=== PATIENT | female | born 1950 | race African-American/Black ===

== ENCOUNTER 2017-08-09 04:00 | Emergency (ER) | payer OTHER, BC ==
[~2017-08-09] VITALS: Ht 165.1 cm; Wt 114.5 kg
[~2017-08-09 04:00] MED LIST: AMLODIPINE BESY10 MG; ANALGESIC325 MG PO; ASPIRIN325 MG PO; ATENOLOL50 M1 PO; ATENOLOL50 MG; ATENOLOL50 MG PO; CLONAZEPAM0.5 MG PO; CRESTOR5 MG; CRESTOR5 MG PO; ERGOCALCIF50000 UNIT; FIORICET,ESG1 TABLET PO; FLUTICASONE PRO16 GM; Flagyl PO; HYDROCHLOROTH12.5 M3 PO; HYDROXYCHLOROQ200 MG; HYDROXYCHLOROQ200 MG PO; HYOSCYAMINE0.375 MG; LO-DOSE ASPIRIN81 M1 PO; LYRICA100 MG; LYRICA100 MG PO; LYRICA50 MG PO; LYRICA75 MG PO; NEXIUM20 MG; NEXIUM20 MG PO; NEXIUM40 MG PO; NORVASC10 MG PO; Norvasc PO; PAMELOR PO; PLAQUENIL200 MG PO; PRILOSEC40 MG PO; RANITIDINE HCL150 MG PO; VITAMIN D250000 UNIT PO; VITAMIN D50000 UNI1
[2017-08-09 04:15] VITALS: BP 185/60
== END 2017-08-09 08:17 | disposition left against medical advice (07) ==
LOC: EME 04:00
DX: R51 Headache (principal); Z53.21 Procedure and treatment not carried out due to patient leaving prior to being seen by health care provider
CPT/HCPCS: 80053; 85027; 99281